=== PATIENT | male | born 1960 | race African-American/Black ===

== ENCOUNTER → 2019-01-31 10:35 | Outpatient (CLI) | payer MEDICARE ==
[2015-06-01 10:07] VITALS: BMI 23.6
[~2019-01-31 10:35] MED LIST: BENADRYL25 MG PO; CARDIZEM CD180 MG PO; CARDURA4 MG PO; DEMADEX20 MG PO; HYDROCODON-ACE1 EAC7 PO; LISINOPRIL10 MG PO; NEPHRO-VITE RX1 TAB PO; RENVELA800 MG PO; ROCALTROL0.5 MCG PO; TOPROL XL25 MG PO; ULORIC80 MG PO; ZETIA10 MG PO
== END | disposition home or self-care (01) ==
LOC: D.LABREF 10:35
PROVIDERS: ATTEND Surgery
DX: D17.22 Benign lipomatous neoplasm of skin and subcutaneous tissue of left arm (principal)